=== PATIENT | female | born 1965 | race African-American/Black ===

== ENCOUNTER 2024-11-24 20:50 | Emergency (ER) | payer OTHER ==
[~2024-11-24] VITALS: Ht 162.6 cm; Wt 78.0 kg
[2024-11-24 20:57] VITALS: O2SAT 99
[2024-11-24 23:46] LABS: BASOPHILS % 0.7 % (0.0-2.0); EOSINOPHILS % 3.4 % (0.0-5.0); HEMATOCRIT. 29.5 % (36.0-48.0); HEMOGLOBIN. 10.1 g/dL (12.0-16.0); LYMPHOCYTES % 22.6 % (20.0-50.0); MEAN CORPUSCULAR HEMOGLOBIN 32.6 pg (28.0-32.0); MEAN CORPUSCULAR HGB CONC 34.1 g/dL (31.0-37.0); MEAN CORPUSCULAR VOLUME 95.7 fL (81.0-99.0); MEAN PLATELET VOLUME 9.2 fl (7.4-10.4); MONOCYTES % 10.7 % (2.0-8.0); NEUTROPHILS % 62.6 % (40.0-76.0); PLATELET 142 x1000/uL (130-400); RED BLOOD CELL COUNT 3.09 mill/uL (4.2-5.4); RED CELL DISTRIBUTION WIDTH 13.4 % (11.6-14.6); WHITE BLOOD COUNT 5.1 x1000/uL (4.5-11.0)
[2024-11-24 23:56] LABS: CHLORIDE 106 mEq/L (98-107); POTASSIUM 4.5 mEq/L (3.5-5.1); SODIUM 133 mEq/L (136-145)
[2024-11-24 23:57] LABS: CALCIUM 10.5 mg/dL (8.7-10.4); CARBON DIOXIDE 25 mEq/L (21-32)
[2024-11-25 00:02] LABS: CREATININE 3.8 mg/dL (0.6-1.0); GLUCOSE 85 mg/dL (70-105); UREA NITROGEN BLOOD 45 mg/dL (9-23)
[2024-11-25 00:03] LABS: TROPONIN I HIGH SENSITIVITY 8 ng/L (3.0-34)
[2024-11-25] MEDS: ACETAMINOPHEN 325MG TABLET PO ONE (00:37)
[2024-11-25] MEDS: KETOROLAC 15MG/ML VIAL IM ONE (00:38)
[2024-11-25 00:52] VITALS: BP 125/53; PULSE 68; RESP 18; TEMP 36.9; O2SAT 99
== END 2024-11-25 00:45 | disposition home or self-care (01) ==
LOC: ER 20:50
DX: R07.89 Other chest pain (principal); Z86.59 Personal history of other mental and behavioral disorders
CPT/HCPCS: 99285; 71045; 80048; 85025; 84484; 36415; 93005; 96372; J1885